=== PATIENT | female | born 1990 | race Caucasian/White ===

== ENCOUNTER 2017-09-06 06:51 | Emergency (ER) | payer OTHER ==
[~2017-09-06] VITALS: Ht 157.5 cm; Wt 54.4 kg
[2017-09-06] MEDS ORDERED: HALOPERIDOL LACTATE 5 MG/1 ML VIAL ONE ×2 (06:57→07:42)
[2017-09-06] MEDS ORDERED: LORAZEPAM 2 MG/1 ML VIAL ONE ×2 (06:57→07:42)
[2017-09-06] MEDS ORDERED: LORAZEPAM 2 MG/1 ML VIAL IM ONE ×2 (07:00→07:45)
[2017-09-06] MEDS ORDERED: HALOPERIDOL LACTATE 5 MG/1 ML VIAL IM ONE ×2 (07:00→07:45)
--- NOTE | 2017-09-06 07:05 | NUR ---
PT BIB [facility]09 ACCOMPANIED BY [employer] FOLLOWING A DOMESTIC DISPUTE. PT PRESENTS W/ AMS W/ REPORTED ETOH USE. PT AGRESSIVE AND COMBATIVE.
--- NOTE | 2017-09-06 07:14 | NUR ---
Patient is alert, LYONS, does not follow command, cursing, yelling & screaming at this time, respiration:nonlabored, skin warm and dry, 4 point restraints being placed at the moment.
--- NOTE | 2017-09-06 07:25 | NUR ---
PT THREATENING STAFF, KICKING, ATTEMPTING TO BITE AND HIT HEAD ON SIDE RAILS/CHOKE SELF W/ HANDCUFFS, DESPITE IM ATIVAN AND HALDOL. UTILITY SYSTEM OPERATOR AWARE AND AT BEDSIDE, AND PT TO BE PLACED IN BEHAVIORAL RESTRAINTS PER MD ORDER.
--- NOTE | 2017-09-06 07:53 | NUR ---
REPORT GIVEN TO DAVIDA LOPEZ.
--- NOTE | 2017-09-06 08:06 | NUR ---
Patient refuses to do the NIHSS exam. "I'm still angry. Get the fuck off." per patient's verbalization.
--- NOTE | 2017-09-06 08:16 | NUR ---
0813- restraints off, patient is AOX4, calm & cooperative at this time. Patient discharged in stable conditon. Written and verbal after care instructions given to police officers. Patient's police officers verbalized understanding of instructions. Patient is under police custody.
== END 2017-09-06 08:22 | disposition home or self-care (01) ==
LOC: ER 06:57
DX: Z00.00 Encounter for general adult medical examination without abnormal findings (principal)
CPT/HCPCS: A4663; J1630; J2060